=== PATIENT | male | born 1960 | race Caucasian/White ===

== ENCOUNTER 2016-11-25 09:20 | Emergency (ER) | payer OTHER ==
[2016-11-25] MEDS ORDERED: Acetaminophen 500 MG TAB ONE (09:49)
[2016-11-25] MEDS ORDERED: Ondansetron ODT 4 MG TAB ONE (09:49)
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
== END 2016-11-25 10:04 | disposition home or self-care (01) ==
LOC: ERS 09:20
DX: S09.90XA Unspecified injury of head, initial encounter (principal); G47.30 Sleep apnea, unspecified; E78.5 Hyperlipidemia, unspecified; W01.198A Fall on same level from slipping, tripping and stumbling with subsequent striking against other object, initial encounter; Y92.815 Train as the place of occurrence of the external cause; Y99.0 Civilian activity done for income or pay
CPT/HCPCS: 70450; Q0162